=== PATIENT | male | born 1960 | race Caucasian/White ===

== ENCOUNTER 2018-11-20 18:10 | Emergency (ER) | payer OTHER ==
[2018-11-20] MEDS: LIDOCAINE 1% (MDV) 20 ML INJ SC (19:24)
[2018-11-20] MEDS: DIPHTH/TET/ACEL PERTUSS (ADULT) 0.5 ML VIAL IM* (19:24)
[2018-11-20] MEDS: BACITRACIN 0.9 GM OINT TOP (21:27)
[2018-11-20] MEDS: HYDROCODONE/APAP (5/325) TAB PO ×2 (21:27→21:32)
== END 2018-11-20 21:46 | disposition home or self-care (01) ==
LOC: FTE 18:10
DX: S61.212A Laceration without foreign body of right middle finger without damage to nail, initial encounter (principal); W25.XXXA Contact with sharp glass, initial encounter; Y92.9 Unspecified place or not applicable; Z23 Encounter for immunization
CPT/HCPCS: 12002; 73130-RT; 90471; 90715; 99283-25